=== PATIENT | male | born 2000 | race Caucasian/White ===

== ENCOUNTER 2023-11-13 08:26 | Emergency (ER) | payer OTHER ==
[~2023-11-13] VITALS: Ht 188 cm; Wt 107.4 kg
[2023-11-13] MEDS ORDERED: LIDOCAINE 1% MDV 20ML VIAL SC ONE (13:10)
[2023-11-13 13:27] VITALS: BP 137/86; TEMP 98.5; O2SAT 98
== END 2023-11-13 13:34 | disposition home or self-care (01) ==
LOC: M ED 08:26
DX: S61.411A Laceration without foreign body of right hand, initial encounter (principal); W26.0XXA Contact with knife, initial encounter; Y92.009 Unspecified place in unspecified non-institutional (private) residence as the place of occurrence of the external cause; Y93.89 Activity, other specified; Y99.9 Unspecified external cause status

== ENCOUNTER → 2023-11-14 | Outpatient (REF) | payer OTHER ==
[2023-11-14 10:42] LABS: SEMEN APPEARANCE OPAQUE (OPAQUE); SEMEN VOLUME 6.4 ml (2.0-5.0)
[2023-11-14 10:43] LABS: SEMEN VISCOSITY LIQUID (LIQUID); SPERM CONCENTRATION 64.7 M/ml (>=15.0); WBC CONCENTRATION <=1 M/ml (<=1 M/ml)
== END ==
LOC: M LAB REF 10:18
PROVIDERS: ATTEND Physician Assistant
DX: Z31.41 Encounter for fertility testing (principal)

== ENCOUNTER 2024-11-10 03:04 | Emergency (ER) | payer OTHER ==
[~2024-11-10] VITALS: Ht 188 cm; Wt 107.3 kg
[2024-11-10 04:19] LABS: BASO # 0.1 10^3/uL (0.0-0.2); BASO % 0.6 % (0.0-1.0); EOS # 0.3 10^3/uL (0.0-0.5); EOS % 2.3 % (0.0-3.0); HEMATOCRIT 46.3 % (42.0-52.0); HEMOGLOBIN 15.6 g/dl (13.5-17.5); LYMPH # 5.3 10^3/uL (1.5-5.0); LYMPH % 36.1 % (24.0-44.0); MEAN CORPUSCULAR HEMOGLOBIN 30.8 pg (27.0-33.0); MEAN CORPUSCULAR HGB CONC 33.7 g/dl (32.0-36.5); MEAN CORPUSCULAR VOLUME 91.3 fl (80.0-96.0); MONO % 6.9 % (2.0-8.0); NEUTROPHILS # 7.9 10^3/uL (1.5-8.5); NEUTROPHILS % 53.8 % (36.0-66.0); PLATELET COUNT, AUTOMATED 310 10^3/uL (150-450); RED BLOOD COUNT 5.07 10^6/uL (4.30-6.10); WHITE BLOOD COUNT 14.6 10^3/uL (4.0-10.0)
[2024-11-10 04:52] LABS: BLOOD UREA NITROGEN 18 MG/DL (9-23); CALCIUM LEVEL 9.6 MG/DL (8.5-10.1); CARBON DIOXIDE LEVEL 28 MMOL/L (20-31); CHLORIDE LEVEL 104 MMOL/L (98-107); CK-MB VALUE MASS < 1.0 NG/ML (<3.6); CREATININE FOR GFR 0.89 MG/DL (0.70-1.30); GLOMERULAR FILTRATION RATE > 60.0 (>60); GLUCOSE, FASTING 111 MG/DL (60-100); POTASSIUM SERUM 4.2 MMOL/L (3.5-5.1); SODIUM LEVEL 142 MMOL/L (136-145)
[2024-11-10 04:56] LABS: CPK CREATINE PHOSPHOKINASE 81 U/L (46-171); MB/CK RELATIVE INDEX 1.23 (< OR =4)
[2024-11-10 07:40] VITALS: BP 116/75; TEMP 97.7; O2SAT 97
[2024-11-10] MEDS ORDERED: HOLTER MONITOR XX (07:41)
== END 2024-11-10 07:58 | disposition home or self-care (01) ==
LOC: M ED 03:04
DX: R00.2 Palpitations (principal); F17.200 Nicotine dependence, unspecified, uncomplicated

== ENCOUNTER → 2024-11-11 | Outpatient (CLI) | payer OTHER ==
[~2024-11-11] MED LIST: HOLTER MONITOR XX
== END ==
LOC: M EKG 10:59
PROVIDERS: ATTEND Registered Nurse
DX: R00.2 Palpitations (principal); Z53.9 Procedure and treatment not carried out, unspecified reason